=== PATIENT | female | born 1965 | race Caucasian/White ===

== ENCOUNTER 2017-12-22 09:31 | Day surgery (SDC) | payer BC ==
[2017-12-21 11:57] VITALS: BMI 25.6
[2017-12-22] MEDS ORDERED: CEFAZOLIN/Water 2 GM/20 ML SYRINGE ONE (11:18)
[2017-12-22 11:29] LABS: #Eosinphils 0.2 thou/uL (0.0-0.7); #Lymphocytes 1.4 thou/uL (1.20-3.40); #Monocytes 0.6 thou/uL (0.11-0.59); #Neutrophils 5.2 thou/uL (1.40-6.50); %Basophils 0.7 % (0.0-1.0); %Eosinophils 2.3 % (0.0-10.0); %Lymphocytes 19.4 % (21.0-51.0); %Neutrophils 69.6 % (42.0-75.0); Hemoglobin 14.2 g/dL (12.0-16.0); Mean Corpuscular HGB CONC 33.2 g/dL (32.0-36.0); Mean Corpuscular Hemoglobin 31.6 pg (27.0-31.0); Mean Platelet Volume 6.7 fL (7.4-10.4); Platelet Count 354 thou/uL (130-400); RBC Distribution Width 12.1 % (11.5-14.5); White Blood Cell (WBC) Count 7.4 thou/uL (4.8-10.8)
[2017-12-22] MEDS ORDERED: Bupivacaine 0.5% 10 ML VIAL ONE ×2 (11:48)
[2017-12-22] MEDS ORDERED: Neomycin-Polymyxin 1 ML AMP ONE (11:48)
[2017-12-22 11:50] LABS: Anion Gap 13 mmol/L (10-20); BUN (Urea Nitrogen) 15 mg/dL (9.8-20.1); Calc. Creatinine Clearance 81 mL/min (70-130); Calcium 9.7 mg/dL (7.8-10.44); Carbon Dioxide 26 mmol/L (22-29); Chloride 104 mmol/L (98-107); Estimated GFR-MDRD 74; Glucose 109 mg/dL (70-105); Potassium 4.5 mmol/L (3.5-5.1); Sodium 138 mmol/L (136-145)
[2017-12-22] MEDS ORDERED: Fentanyl 100 MCG/2 ML VIAL ONE ×3 (12:55→14:11)
--- NOTE | 2017-12-22 13:45 | OP ---
DATE OF SURGERY: 12/22/2017 SURGEON: Es Lobato DPM. PREOPERATIVE DIAGNOSES: Plantar fasciitis, left foot; small retrocalcaneal exostosis, left foot; rosa n in the left foot. PROCEDURES PERFORMED: Plantar fascial release, left foot; resection of bone spur, left heel. ANESTHESIA: TIVA with local foot block. HEMOSTASIS: Pneumatic ankle tourniquet at 300 mmHg. ESTIMATED BLOOD LOSS: Less than 5 mL MATERIALS: 4-0 Vicryl and 4-0 Prolene. INJECTABLES: 30 mL of 0.5% Marcaine plain. DESCRIPTION OF PROCEDURE: The patient was brought into the operating room, and placed on the operati ng table in supine position. Well-padded pneumatic ankle tourniquet was placed about the patient's l eft lower extremity. The foot was then scrubbed, prepped and draped in usual aseptic manner. Esmarc h bandage was used to exsanguinate the patient's left foot and the pneumatic ankle tourniquet was the n inflated to 300 mmHg, which provided adequate hemostasis throughout the entire procedure. Next, at tention was then directed to the medial aspect of the patient's foot where a 2 cm linear longitudinal incision was made just distal to the insertion of the plantar fascia. The incision was deepened thr ough subcuticular structures with care being taken to retract all neurovascular structures. Upon north quate exposure of the plantar fascia, the medial band of the plantar fascia was then palpated and rel eased utilizing a 15 blade. At this point, the calcaneal spur was then identified and resected utili zing a rongeur. The wound was irrigated with copious amounts of sterile normal saline and mixture and the subcuticular structures were reapproximated and coapted utilizing 4-0 Monocryl and the skin was closed utilizing 4-0 Prolene in a simple interrupted suture technique. Light compressive dressin g was placed about the patient's left foot and the pneumatic ankle tourniquet was released with promp t hyperemic response noted to all digits in the left foot. DISCHARGE SUMMARY: The patient tolerated the procedure and anesthesia and was transferred to the rec overy room with vital signs stable and vascular status intact to all digits of the left foot. Follow ing a period of postoperative monitoring, the patient is to be discharged home. Should she have any problems prior to the first postoperative appointment, she is advised to call and will be seen within 1 week of the procedure.
--- NOTE | 2017-12-22 16:03 | EKG ---
Test Reason : PREOP Blood Pressure : / mmHG Vent. Rate : 065 BPM Atrial Rate : 065 BPM P-R Int : 130 ms QRS Dur : 068 ms QT Int : 398 ms P-R-T Axes : 035 035 047 degrees QTc Int : 413 ms Normal sinus rhythm Normal ECG Confirmed by SHO RILEY ([id number]) on 12/22/2017 4:02:54 PM Referred By: RONALD Confirmed By:SHO RILEY
[2017-12-22] MEDS ORDERED: Lidocaine 1% PF 5 ML VIAL ONE (17:08)
[2017-12-22] MEDS ORDERED: Propofol 200 MG/20 ML VIAL ONE (17:08)
[2017-12-22] MEDS ORDERED: ePHEDrine/0.9% NaCl/PF SYRINGE 50 mg/10 ml ONE (17:08)
== END 2017-12-22 15:15 | disposition home or self-care (01) ==
LOC: SDC 09:31
PROVIDERS: ATTEND Podiatrist Foot & Ankle Surgery
PROC: 0KNW0ZZ Release Left Foot Muscle, Open Approach (ICD-10-PCS; principal; 2017-12-22)
DX: M72.2 Plantar fascial fibromatosis (principal); M77.32 Calcaneal spur, left foot; G43.909 Migraine, unspecified, not intractable, without status migrainosus; F41.0 Panic disorder [episodic paroxysmal anxiety]; F17.200 Nicotine dependence, unspecified, uncomplicated; Z79.890 Hormone replacement therapy; Z79.899 Other long term (current) drug therapy; Z88.5 Allergy status to narcotic agent
CPT/HCPCS: 36415; 80048; 85025; 93005; 93010; 96374; J2001; J2704; J3010; J3490

== ENCOUNTER 2018-04-28 12:16 | Outpatient (CLI) | payer OTHER | END 2018-04-28 12:17 | disposition home or self-care (01) | LOC: BICMRI 12:16 | PROVIDERS: ATTEND Specialist | DX: S83.512A Sprain of anterior cruciate ligament of left knee, initial encounter (principal); M22.42 Chondromalacia patellae, left knee; M71.38 Other bursal cyst, other site; Z98.890 Other specified postprocedural states ==

== ENCOUNTER 2021-10-09 11:59 | Outpatient (CLI) | payer MEDICARE, MEDICAID | END 2021-10-09 12:00 | disposition home or self-care (01) | LOC: SCSMRI 11:59 | PROVIDERS: ATTEND Surgery | DX: M47.26 Other spondylosis with radiculopathy, lumbar region (principal); M48.8X4 Other specified spondylopathies, thoracic region; M47.814 Spondylosis without myelopathy or radiculopathy, thoracic region; Z91.89 Other specified personal risk factors, not elsewhere classified | CPT/HCPCS: 72141; 72146 ==

== ENCOUNTER 2025-07-16 14:11 | Outpatient (CLI) | payer OTHER, MEDICAID | END 2025-07-16 14:12 | disposition home or self-care (01) | LOC: BICRAD 14:11 | PROVIDERS: ATTEND Orthopaedic Surgery | DX: M46.1 Sacroiliitis, not elsewhere classified (principal); Z98.1 Arthrodesis status | CPT/HCPCS: 72190 ==